=== PATIENT | male | born 1995 ===

== ENCOUNTER 2017-02-20 23:15 | Emergency (ER) | payer SELFPAY ==
[~2017-02-20] VITALS: Ht 175.3 cm; Wt 90.0 kg
[2017-02-20 23:24] VITALS: Ht 175.3 cm; Wt 90.0 kg
== END 2017-02-21 00:39 | disposition left against medical advice (07) ==
LOC: E/R 23:15
DX: Z53.21 Procedure and treatment not carried out due to patient leaving prior to being seen by health care provider (principal)